=== PATIENT | male | born 1980 | race Caucasian/White ===

== ENCOUNTER 2022-07-02 19:38 | Emergency (ER) | payer SELFPAY ==
[2022-07-02] MEDS ORDERED: EPINEPHrine 1 MG/1 ML Amp IVPUSH ONE ×2 (19:40→19:45)
[2022-07-02] MEDS ORDERED: EPINEPHrine 1:10,000 1 MG/10 ML Syringe IVPUSH ONE ×2 (19:40→19:45)
== END 2022-07-02 23:55 | disposition expired ==
LOC: FB.ED 19:52
DX: S41.002A Unspecified open wound of left shoulder, initial encounter (principal); J93.9 Pneumothorax, unspecified; J94.2 Hemothorax; Z79.899 Other long term (current) drug therapy; W34.00XA Accidental discharge from unspecified firearms or gun, initial encounter
CPT/HCPCS: 31500; 71045; 92950; 99285; 99285-25; J0171